=== PATIENT | female | born 1935 | race Caucasian/White ===

== ENCOUNTER 2021-08-23 12:56 | Outpatient (CLI) | payer MEDICARE, BC ==
[2021-08-23 14:28] LABS: Hemoglobin 11.9 g/dL (12.0-15.5); Mean Corpuscular HGB CONC 32.6 g/dL (32.0-36.0); Mean Corpuscular Hemoglobin 31.2 pg (27.0-33.0); Mean Corpuscular Volume 95.5 fl (81.6-98.3); Platelet Count 195 10x3/uL (150-450); RBC Distribution Width 16.4 % (11.5-14.5); Red Blood Cell (RBC) Count 3.82 10x6/uL (3.90-5.03); White Blood Cell (WBC) Count 4.7 10x3/uL (3.5-10.5)
[2021-08-23 14:43] LABS: Bilirubin Neg (Negative); Blood, Urine Negative (Negative); Glucose, Urine (Dipstick) Normal (Negative); Ketone, Urine Negative (Negative); Leukocyte 25 (Negative); Nitrite Negative (Negative); Protein, Urine (Dipstick) 15 mg/dl (Neg-Trace); Specific Gravity, Urine 1.005 (1.002-1.036); Urobilinogen Normal mg/dL (Less than 2)
[2021-08-23 14:46] LABS: Clarity Clear (Clear)
[2021-08-23 15:03] LABS: Bacteria/HPF Rare-Few HPF (None Seen); RBC/HPF 0-3 HPF (0-3); Squamous Epithelial 0-3 HPF (0-3); WBC/HPF 0-3 HPF (0-3); Yeast-Budding Rare HPF (None Seen)
[2021-08-23 15:06] LABS: Anion Gap 15 mmol/L (10-20); BUN (Urea Nitrogen) 11 mg/dL (9.8-20.1); Calc. Creatinine Clearance 0 mL/min (70-130); Calcium 9.3 mg/dL (7.8-10.44); Carbon Dioxide 26 mmol/L (23-31); Chloride 99 mmol/L (98-107); Glucose 95 mg/dL (83-110); Potassium 3.6 mmol/L (3.5-5.1); Sodium 136 mmol/L (136-145)
[2021-08-24 08:45] LABS: SARS-CoV-2 PCR by NAA Not Detected (NotDetected)
== END 2021-08-23 12:57 | disposition home or self-care (01) ==
LOC: LABBT 12:56
PROVIDERS: ATTEND Urology
DX: Z01.818 Encounter for other preprocedural examination (principal); N35.92 Unspecified urethral stricture, female; Z20.822 Contact with and (suspected) exposure to COVID-19
CPT/HCPCS: 80048; 81001; 85027; 87086; 93005; U0003; U0005; 93010

== ENCOUNTER 2021-08-28 07:23 | Day surgery (SDC) | payer MEDICARE, BC ==
[2021-08-27 12:11] VITALS: BMI 34.2
[2021-08-28] MEDS ORDERED: Levofloxacin 500 mg/D5W 100 ml Premix Bag ONE (08:35)
[2021-08-28] MEDS ORDERED: Fentanyl 100 MCG/2 ML VIAL ONE (08:54)
[2021-08-28] MEDS ORDERED: PROPOFOL 200 MG/20 ML VIAL ONE (09:11)
[2021-08-28] MEDS ORDERED: Lidocaine 1% PF 5 ML VIAL ONE (09:11)
[2021-08-28] MEDS ORDERED: Phenazopyridine HCl 100 MG TAB ONE (09:48)
[2021-08-28] MEDS ORDERED: Oxybutynin 5 MG TAB ONE (09:48)
== END 2021-08-28 11:15 | disposition home or self-care (01) ==
LOC: SDC 07:23
PROVIDERS: ATTEND Urology
PROC: 0T7D8ZZ Dilation of Urethra, Via Natural or Artificial Opening Endoscopic (ICD-10-PCS; principal; 2021-08-28)
DX: N35.92 Unspecified urethral stricture, female (principal); N81.10 Cystocele, unspecified; N32.89 Other specified disorders of bladder; N39.3 Stress incontinence (female) (male); I10 Essential (primary) hypertension; K21.9 Gastro-esophageal reflux disease without esophagitis; M06.9 Rheumatoid arthritis, unspecified; J45.909 Unspecified asthma, uncomplicated; Z87.891 Personal history of nicotine dependence; Z79.02 Long term (current) use of antithrombotics/antiplatelets; Z79.52 Long term (current) use of systemic steroids; Z79.899 Other long term (current) drug therapy; Z88.2 Allergy status to sulfonamides; Z88.6 Allergy status to analgesic agent
CPT/HCPCS: J1956; J2704; J3010

== ENCOUNTER 2022-08-13 10:00 | Inpatient (IN) | payer MEDICARE, BC ==
[2022-08-15 12:29] VITALS: BMI 35.4
[2022-08-16] MEDS ORDERED: Neomycin-Polymyxin 1 ML AMP ONE (06:11)
[2022-08-16] MEDS ORDERED: Thrombin 5000 UNITS/5 ML VIAL ONE (06:11)
[2022-08-16 06:34] LABS: #Basophils 0.1 thou/uL (0.0-0.2); #Lymphocytes 1.4 thou/uL (1.20-3.40); #Monocytes 0.5 thou/uL (0.11-0.59); #Neutrophils 4.2 thou/uL (1.40-6.50); %Basophils 0.8 % (0.0-1.0); %Eosinophils 0.7 % (0.0-10.0); %Lymphocytes 22.6 % (21.0-51.0); %Monocytes 7.5 % (0.0-10.0); %Neutrophils 68.4 % (42.0-75.0); Hemoglobin 9.8 g/dL (12.0-16.0); Mean Corpuscular HGB CONC 31.7 g/dL (32.0-36.0); Mean Corpuscular Hemoglobin 30.3 pg (27.0-31.0); Mean Corpuscular Volume 95.7 fl (78.0-98.0); Mean Platelet Volume 7.4 fL (7.4-10.4); Platelet Count 171 thou/uL (130-400); RBC Distribution Width 16.4 % (11.5-14.5); Red Blood Cell (RBC) Count 3.22 mill/uL (4.20-5.40); White Blood Cell (WBC) Count 6.2 thou/uL (4.8-10.8)
[2022-08-16] MEDS ORDERED: Sodium Chloride 0.9% 100 ML ONE (06:44)
[2022-08-16] MEDS ORDERED: CEFAZOLIN 2 GM VIAL ONE (06:44)
[2022-08-16 06:47] LABS: INR-International Normal Ratio 0.9; PTT 30.9 sec (22.9-36.1); Prothrombin Time 12.2 sec (12.0-14.7)
[2022-08-16 06:49] LABS: Anion Gap 11 mmol/L (10-20); BUN (Urea Nitrogen) 21 mg/dL (9.8-20.1); Calc. Creatinine Clearance 58 mL/min (70-130); Calcium 9.1 mg/dL (7.8-10.44); Carbon Dioxide 29 mmol/L (23-31); Chloride 98 mmol/L (98-107); Estimated GFR 54; Glucose 116 mg/dL (83-110); Potassium 3.7 mmol/L (3.5-5.1); Sodium 134 mmol/L (136-145)
[2022-08-16] MEDS ORDERED: SUGAMMADEX SODIUM 200 MG/2 ML VIAL ONE (06:53)
[2022-08-16] MEDS ORDERED: Phenylephrine 10 MG/ML VIAL ONE (06:53)
[2022-08-16] MEDS ORDERED: Acetaminophen/Codeine 30-300mg Tablet PO PRN (06:57)
[2022-08-16] MEDS ORDERED: Milk Of Magnesia 30 ML UDCUP PO PRN (06:57)
[2022-08-16] MEDS ORDERED: Bisacodyl 10 MG SUPP PR PRN (06:57)
[2022-08-16] MEDS ORDERED: HYDROcodone/Acetaminophen 7.5/325 mg Tablet PO PRN (06:57)
[2022-08-16] MEDS ORDERED: Mag-Al 1200 mg/1200 mg/30 ML UDCUP PO PRN (06:57)
[2022-08-16] MEDS ORDERED: Prochlorperazine 10 MG/2 ML VIAL IM PRN (06:57)
[2022-08-16] MEDS ORDERED: Ondansetron PF 4 MG/2 ML Vial IVP PRN (06:57)
[2022-08-16 07:11] LABS: SARS-CoV-2 NAA Rapid Test Not Detected (NotDetected)
[2022-08-16] MEDS ORDERED: PROPOFOL 200 MG/20 ML VIAL ONE (07:17)
[2022-08-16] MEDS ORDERED: Ondansetron PF 4 MG/2 ML Vial ONE (07:17)
[2022-08-16] MEDS ORDERED: Rocuronium Bromide 10 MG/ML (10ML VIAL) ONE (07:17)
[2022-08-16] MEDS ORDERED: Promethazine HCl 25 MG/ML VIAL IVPB PRN (11:50)
[2022-08-16] MEDS ORDERED: Ondansetron HCl/PF 4 MG/2 ML Vial IVP PRN (11:50)
[2022-08-16] MEDS ORDERED: Promethazine HCl 25 MG/ML VIAL IM PRN (11:50)
[2022-08-16] MEDS ORDERED: fentaNYL Citrate/PF 100 MCG/2 ML SYRINGE ONE (11:54)
[2022-08-16] MEDS ORDERED: Promethazine HCl 25 MG/ML VIAL ONE (12:05)
[2022-08-16] MEDS ORDERED: FENTANYL 50 MCG/ML VIAL 50 MCG/ML VIAL ONE ×2 (12:19→12:58)
[2022-08-16] MEDS: Morphine 4 MG/ML VIAL SLOW IVP PRN ×3 (15:09→23:09)
[2022-08-16] MEDS: CEFAZOLIN 2 GM in Sodium Chloride 0.9% 100 ML IVPB SCH ×2 (15:10→23:04)
[2022-08-16] MEDS ORDERED: Albuterol Sulfate 2.5 mg/3 ml Neb NEB PRN (15:32)
[2022-08-16] MEDS: Sodium Chloride 0.9% 1,000 ML IV SCH ×2 (17:39→20:03)
[2022-08-16] MEDS: Cyclobenzaprine 10 MG TAB PO PRN (17:48)
[2022-08-16] MEDS: Ipratropium Bromide 2.5 ml Neb NEB SCH ×2 (18:42→22:25)
[2022-08-16] MEDS: Mometasone 200 MCG/Formoterol 5 MCG 120 PUFF INHALER INH SCH (18:51)
[2022-08-16] MEDS: Rosuvastatin 5 MG TAB PO SCH (20:29)
[2022-08-16] MEDS: Montelukast Sodium 10 mg Tablet PO SCH (20:29)
[2022-08-16] MEDS: predniSONE 5 MG TAB PO SCH (20:29)
[2022-08-16] MEDS: Azelastine 137 MCG/Spray 30 ML NS SCH (20:30)
[2022-08-16] MEDS: Folic Acid 1 MG TAB PO SCH (20:30)
[2022-08-16] MEDS ORDERED: Lifitegrast [Xiidra] Droperette EA EYE SCH (21:00)
[2022-08-17] MEDS: Morphine 4 MG/ML VIAL SLOW IVP PRN ×3 (02:04→20:33)
[2022-08-17] MEDS: Levothyroxine Sodium 100 MCG TAB PO SCH (05:31)
[2022-08-17 05:44] LABS: #Basophils 0.1 thou/uL (0.0-0.2); #Lymphocytes 1.7 thou/uL (1.20-3.40); #Monocytes 0.9 thou/uL (0.11-0.59); %Basophils 0.6 % (0.0-1.0); %Eosinophils 0.5 % (0.0-10.0); %Lymphocytes 17.4 % (21.0-51.0); %Monocytes 9.1 % (0.0-10.0); %Neutrophils 72.4 % (42.0-75.0); Hemoglobin 9.7 g/dL (12.0-16.0); Mean Corpuscular HGB CONC 31.3 g/dL (32.0-36.0); Mean Corpuscular Hemoglobin 29.8 pg (27.0-31.0); Mean Corpuscular Volume 95.5 fl (78.0-98.0); Mean Platelet Volume 7.5 fL (7.4-10.4); Platelet Count 162 thou/uL (130-400); RBC Distribution Width 16.5 % (11.5-14.5); Red Blood Cell (RBC) Count 3.23 mill/uL (4.20-5.40); White Blood Cell (WBC) Count 9.7 thou/uL (4.8-10.8)
[2022-08-17 06:23] LABS: Anion Gap 10 mmol/L (10-20); BUN (Urea Nitrogen) 15 mg/dL (9.8-20.1); Calc. Creatinine Clearance 81 mL/min (70-130); Calcium 8.4 mg/dL (7.8-10.44); Carbon Dioxide 27 mmol/L (23-31); Chloride 99 mmol/L (98-107); Estimated GFR 80; Glucose 106 mg/dL (83-110); Potassium 3.4 mmol/L (3.5-5.1); Sodium 133 mmol/L (136-145)
[2022-08-17] MEDS: Ipratropium Bromide 2.5 ml Neb NEB SCH ×2 (07:09→14:13)
[2022-08-17] MEDS: Mometasone 200 MCG/Formoterol 5 MCG 120 PUFF INHALER INH SCH ×2 (07:09→18:49)
[2022-08-17] MEDS: Fluticasone Propionate Nasal Spray 16 gm Bottle FS SCH (08:40)
[2022-08-17] MEDS: Azelastine 137 MCG/Spray 30 ML NS SCH ×2 (08:41→20:03)
[2022-08-17] MEDS: predniSONE 5 MG TAB PO SCH ×2 (08:41→20:03)
[2022-08-17] MEDS: Bupropion 150 MG XL TAB PO SCH (08:41)
[2022-08-17] MEDS: Minocycline HCl 50 MG CAP PO SCH (08:41)
[2022-08-17] MEDS: HYDROcodone/Acetaminophen 10/325 mg Tablet PO PRN ×3 (08:46→20:02)
[2022-08-17] MEDS: Sodium Chloride 0.9% 1,000 ML IV SCH ×2 (08:49→21:15)
[2022-08-17] MEDS ORDERED: Linaclotide [Linzess] 290 MCG Capsule PO SCH (09:00)
[2022-08-17] MEDS ORDERED: Ipratropium Bromide 2.5 ml Neb NEB PRN (14:15)
[2022-08-17] MEDS: Rosuvastatin 5 MG TAB PO SCH (20:03)
[2022-08-17] MEDS: Folic Acid 1 MG TAB PO SCH (20:03)
[2022-08-17] MEDS: Montelukast Sodium 10 mg Tablet PO SCH (20:03)
[2022-08-18] MEDS: HYDROcodone/Acetaminophen 10/325 mg Tablet PO PRN ×5 (02:37→22:40)
[2022-08-18] MEDS: Levothyroxine Sodium 100 MCG TAB PO SCH (06:12)
[2022-08-18] MEDS: Minocycline HCl 50 MG CAP PO SCH (08:33)
[2022-08-18] MEDS: predniSONE 5 MG TAB PO SCH ×2 (08:34→20:25)
[2022-08-18] MEDS: Fluticasone Propionate Nasal Spray 16 gm Bottle FS SCH (08:34)
[2022-08-18] MEDS: Azelastine 137 MCG/Spray 30 ML NS SCH ×2 (08:34→20:25)
[2022-08-18] MEDS: Bupropion 150 MG XL TAB PO SCH (08:34)
[2022-08-18] MEDS: Morphine 4 MG/ML VIAL SLOW IVP PRN (10:26)
[2022-08-18] MEDS: Sodium Chloride 0.9% 1,000 ML IV SCH ×2 (11:18→21:33)
[2022-08-18] MEDS: Cyclobenzaprine 10 MG TAB PO PRN ×2 (12:10→20:25)
[2022-08-18] MEDS: Mometasone 200 MCG/Formoterol 5 MCG 120 PUFF INHALER INH SCH ×2 (12:33→18:35)
[2022-08-18] MEDS: Rosuvastatin 5 MG TAB PO SCH (20:24)
[2022-08-18] MEDS: Folic Acid 1 MG TAB PO SCH (20:25)
[2022-08-18] MEDS: Montelukast Sodium 10 mg Tablet PO SCH (20:25)
[2022-08-18] MEDS ORDERED: Hydrochlorothiazide 25 MG TAB PO SCH (21:00)
[2022-08-18] MEDS ORDERED: Losartan 25 MG TAB PO SCH (21:00)
[2022-08-19] MEDS: HYDROcodone/Acetaminophen 10/325 mg Tablet PO PRN ×3 (03:09→15:48)
[2022-08-19] MEDS: Levothyroxine Sodium 100 MCG TAB PO SCH (05:19)
[2022-08-19 05:23] VITALS: TEMP 98.5
[2022-08-19] MEDS: Mometasone 200 MCG/Formoterol 5 MCG 120 PUFF INHALER INH SCH ×2 (07:54→18:53)
[2022-08-19] MEDS: predniSONE 5 MG TAB PO SCH (08:19)
[2022-08-19] MEDS: Azelastine 137 MCG/Spray 30 ML NS SCH (08:19)
[2022-08-19] MEDS: Minocycline HCl 50 MG CAP PO SCH (08:19)
[2022-08-19] MEDS: Bupropion 150 MG XL TAB PO SCH (08:19)
[2022-08-19] MEDS: Fluticasone Propionate Nasal Spray 16 gm Bottle FS SCH (08:19)
[2022-08-19] MEDS: Cyclobenzaprine 10 MG TAB PO PRN (10:49)
[2022-08-19 15:37] VITALS: BP 147/79
[2022-08-19] MEDS: Sodium Chloride 0.9% 1,000 ML IV SCH (16:28)
== END 2022-08-19 19:40 | DRG 472 ==
LOC: SURG A 08-16 05:42
PROVIDERS: ADMIT Neurological Surgery; ATTEND Neurological Surgery
PROC: 0RG2070 Fusion of 2 or more Cervical Vertebral Joints with Autologous Tissue Substitute, Anterior Approach, Anterior Column, Open Approach (ICD-10-PCS; principal; 2022-08-16)
PROC: 0RB30ZZ Excision of Cervical Vertebral Disc, Open Approach (ICD-10-PCS; 2022-08-16)
PROC: 01N10ZZ Release Cervical Nerve, Open Approach (ICD-10-PCS; 2022-08-16)
DX: M50.123 Cervical disc disorder at C6-C7 level with radiculopathy (principal); M50.021 Cervical disc disorder at C4-C5 level with myelopathy; M50.022 Cervical disc disorder at C5-C6 level with myelopathy; M41.85 Other forms of scoliosis, thoracolumbar region; M06.9 Rheumatoid arthritis, unspecified; Z96.653 Presence of artificial knee joint, bilateral; E78.00 Pure hypercholesterolemia, unspecified; J45.20 Mild intermittent asthma, uncomplicated; E03.9 Hypothyroidism, unspecified; I10 Essential (primary) hypertension; Z87.891 Personal history of nicotine dependence; Z90.710 Acquired absence of both cervix and uterus; Z79.51 Long term (current) use of inhaled steroids; Z79.890 Hormone replacement therapy; Z88.2 Allergy status to sulfonamides; Z88.8 Allergy status to other drugs, medicaments and biological substances
CPT/HCPCS: 36415; 80048; 85025; 85610; 85730; 86850; 86900; 86901; 94640; 94664; C1713; J2270; J2370; J2405; J2550; J2704; J3010; J3490; J7512; J7611; U0002

== ENCOUNTER 2022-08-13 10:43 | Outpatient (CLI) | payer MEDICARE, BC | END 2022-08-13 10:44 | disposition home or self-care (01) | LOC: LABBT 10:43 | PROVIDERS: ATTEND Neurological Surgery | DX: Z01.810 Encounter for preprocedural cardiovascular examination (principal); M50.021 Cervical disc disorder at C4-C5 level with myelopathy | CPT/HCPCS: 93005; 93010 ==